=== PATIENT | female | born 1985 | race Caucasian/White ===

== ENCOUNTER 2017-02-10 09:33 | Emergency (ER) | payer SELFPAY ==
[2017-02-10] MEDS ORDERED: CAPOZIDE (09:43)
[2017-02-10] MEDS ORDERED: NORVASC10 MG (09:43)
== END 2017-02-10 10:30 | disposition home or self-care (01) ==
LOC: SED 09:33
DX: L23.7 Allergic contact dermatitis due to plants, except food (principal); I10 Essential (primary) hypertension; Z98.890 Other specified postprocedural states; Z79.899 Other long term (current) drug therapy
CPT/HCPCS: 99282; 99283